=== PATIENT | female | born 1960 | race Caucasian/White ===

== ENCOUNTER 2018-05-15 19:40 | Emergency (ER) | payer BC ==
--- NOTE | 2018-05-15 21:34 | EDM.PDOC ---
<Hector Mercer - Last Filed: 05/15/18 21:33> ED HPI GENERAL MEDICAL PROBLEM - General Chief Complaint: Upper Extremity Injury/Pain Stated Complaint: WRIST INJURY Time Seen by Provider: 05/15/18 21:09 - Related Data Allergies Allergy/AdvReac Type Severity Reaction Status Date / Time No Known Allergies Allergy Verified 05/15/18 20:48 Home Meds: Home Meds . [No Known Home Meds] 05/15/18 [History] Course - Vital Signs Last Recorded V/S: Last Vital Signs Temp 98.9 F 05/15/18 20:49 Pulse 57 L 05/15/18 20:49 Resp 16 05/15/18 20:49 BP 210/111 H 05/15/18 20:49 Pulse Ox 99 05/15/18 20:49 - Re-Assessments/Exams Free Text/Narrative Re-Assessment/Exam: 05/15/18 21:33 The patient appears to have a ganglion cyst. I am recommending referral to Dr. Newman for definitive treatment. Departure - Departure Disposition: Home, Self-Care 01 Clinical Impression: Ganglion cyst of dorsum of right wrist, Hematoma - Discharge Information Instructions: Ganglion Cyst Referrals: PCP,None [Primary Care Provider] - Forms: ED Department Discharge, ED Return to Work/School Form Additional Instructions: you have been diagnosed with a ganglion cyst and hematoma. You're to follow-up with Dr. Brad Newman [phone]. Since she did not have a primary care doctor for you to Dr. Kamini [phone]. Return to the emergency room for any new or acutely worsening symptoms. <Farida Abbasi - Last Filed: 05/15/18 21:43> ED HPI GENERAL MEDICAL PROBLEM - General Source of Information: Reports: Patient History Limitations: Reports: No Limitations - History of Present Illness INITIAL COMMENTS - FREE TEXT/NARRATIVE: 57-year-old female presents to emergency with chief complaints of right dorsal hand bump that has resulted in a hematoma. She states that she's had a couple bumps on her hand that she's had for a few weeks and today she noticed that it developed a hematoma. She denies any numbness or tickling to her hand she reports she is right-handed. She has not taken anything for pain. She does not have a PCP. Onset: Today Onset Date: 05/15/18 Onset Time: 15:00 Duration: Getting Worse Location: Reports: Upper Extremity, Right Front/Back Body Image: 1 - Ganglion cyst with small hematoma noted, neurovascular intact. Quality: Reports: Other (Denies any pain) Improves with: Reports: None Worsens with: Reports: None Associated Symptoms: Reports: No Other Symptoms Review of Systems - Review of Systems Review Of Systems: ROS reveals no pertinent complaints other than HPI. Skin: Reports: Lumps (Right dorsal hand), Other (Right dorsal hematoma neurovascularly intact) ED EXAM, GENERAL - Physical Exam Exam: See Below Exam Limited By: No Limitations General Appearance: Alert, WD/WN, No Apparent Distress Skin Exam: Warm, Dry, Intact, Normal Color, No Rash, Other (Right dorsal ganglion cyst with small hematoma noted, neurovascularly intact) Course - Re-Assessments/Exams Free Text/Narrative Re-Assessment/Exam: 05/15/18 21:39 Discussed plan of care with patient discharged home with instructions to follow up with Xavier Newman, . Since the patient does not have a PCP I will refer her to Dr. Kamini Doherty. I did instruct the patient to return to the emergency room for any new or acutely worsening symptoms. Departure - Departure Time of Disposition: 21:41 Condition: Good - Discharge Information *PRESCRIPTION DRUG MONITORING PROGRAM REVIEWED*: Not Applicable
== END 2018-05-15 22:10 | disposition home or self-care (01) ==
LOC: JD.ED 19:40
DX: M67.431 Ganglion, right wrist (principal); S60.221A Contusion of right hand, initial encounter; X58.XXXA Exposure to other specified factors, initial encounter
CPT/HCPCS: 99282; 99283

== ENCOUNTER 2020-05-21 11:18 | Emergency (ER) | payer BC ==
--- NOTE | 2020-05-21 11:30 | EDM.PDOC ---
ED HPI GENERAL MEDICAL PROBLEM - General Chief Complaint: Cardiovascular Problem Stated Complaint: HIGH BLOOD PRESSURE SENT BY [facility] Time Seen by Provider: 05/21/20 11:30 Source of Information: Reports: Patient, Provider History Limitations: Reports: No Limitations - History of Present Illness INITIAL COMMENTS - FREE TEXT/NARRATIVE: 59-year-old female with known hypertension presents to the ED at the request of her provider at [facility]. She apparently is not being seen for about 1 year and is unclear how compliant she has been with antihypertensive medication. At any rate blood pressure in the clinic this morning was elevated at 201 over 118. Have a mild headache mostly frontal temporal headache that she woke with this morning. She has been having more headaches than usual suggesting blood pressures been elevated for period of time. She did see primary care practitioner at the walk-in clinic at [facility] about a week ago and was started on antihypertensive medication at that time. It is unclear exactly what this was at this time. Old she had hypertension about a year ago but has not been on any medication up until a week ago. We will phone the pharmacy that she got her medicine from to identify what she was started on. Denies any blurred vision, vertigo. No labs or ECG or chest x-ray were performed in the clinic today. Last week she was also started on a anti-inflammatory medication for her left knee pain which of course could be aggravating her blood pressure as well. Onset: Unknown/Unsure (History suggest uncontrolled hypertension for greater than at least 1 year. Patient has 2 sisters and a brother with hypertension. Not sure about mom.) Duration: Chronic, Getting Worse Location: Reports: Generalized (Possibly associated with mild headache the last several weeks.) Quality: Reports: Ache Severity: Mild (Dull ache in the temporal parietal aspect of her scalp bilaterally.) Improves with: Reports: None Worsens with: Reports: None Context: Denies: Activity, Exercise, Lifting, Sick Contact, Trauma, Other Associated Symptoms: Reports: Headaches. Denies: No Other Symptoms, Confusion, Chest Pain, Cough, cough w sputum, Diaphoresis, Fever/Chills, Loss of Appetite, Malaise, Nausea/Vomiting, Rash, Seizure, Shortness of Breath, Syncope, Weakness Treatments [employer]: Reports: Other (see below) - Related Data Allergies Allergy/AdvReac Type Severity Reaction Status Date / Time No Known Allergies Allergy Verified 05/21/20 11:36 Home Meds: Home Meds Valsartan 160 mg PO DAILY #30 tablet 05/21/20 [Rx] amLODIPine Besylate [Amlodipine Besylate] 10 mg PO DAILY #30 tablet 05/21/20 [Rx] Past Medical History - Past Health History Medical/Surgical History: Denies Medical/Surgical History Social & Family History - Caffeine Use Caffeine Use: Reports: Coffee - Living Situation & Occupation Living situation: Reports: Occupation: Employed ED ROS GENERAL - Review of Systems Review Of Systems: See Below Constitutional: Reports: Fatigue. Denies: Fever, Chills, Malaise, Weakness, Decreased Appetite, Weight Loss HEENT: Reports: Glasses Respiratory: Denies: Shortness of Breath, Wheezing, Pleuritic Chest Pain, Cough, Sputum Cardiovascular: Reports: Blood Pressure Problem (Recently diagnosed to have significantly elevated). Denies: Chest Pain, Claudication, Dyspnea on Exertion, Edema, Lightheadedness, Orthopnea ( blood pressure), Palpitations Endocrine: Reports: Fatigue GI/Abdominal: Reports: No Symptoms, Other (Known inguinal hernia for many years but is opted not to have this surgically repaired since it does not bother her much.) : Reports: Frequency, Incontinence (Very rare stress incontinence) Musculoskeletal: Reports: Joint Pain (Particularly left knee recently from osteoarthritic change. Occasionally low back pain neck pain and shoulder pain) Skin: Reports: No Symptoms Neurological: Reports: No Symptoms Psychiatric: Reports: No Symptoms Hematologic/Lymphatic: Reports: No Symptoms Immunologic: Reports: No Symptoms ED EXAM, GENERAL - Physical Exam Exam: See Below Exam Limited By: No Limitations General Appearance: Alert, WD/WN, No Apparent Distress, Other (Temperature is 36.3 degrees. Heart rate 81 and sinus respiratory to 16 with O2 sats of 96% room air initial blood pressure was 233/108.) Eye Exam: Bilateral Eye: A-V [place] (Held AV nicking bilaterally.), Normal Inspection, PERRL Ears: Normal TMs Throat/Mouth: Normal Inspection, Normal Lips, Normal Teeth, Normal Oropharynx Head: Atraumatic, Normocephalic Neck: Normal Inspection, Supple, Non-Tender, Full Range of Motion. No: Carotid Bruit, Lymphadenopathy (L), Lymphadenopathy (R) Respiratory/Chest: No Respiratory Distress, Lungs Clear, Normal Breath Sounds, No Accessory Muscle Use Cardiovascular: Normal Peripheral Pulses, Regular Rate, Rhythm, No Edema, No Gallop, No Murmur, No Rub Peripheral Pulses: 2+: Posterior Tibial (L), Posterior Tibial (R), Dorsalis Pedis (L), Dorsalis Pedis (R), 3+: Carotid (L), Carotid (R) GI/Abdominal: Normal Bowel Sounds, Soft, Non-Tender, No Organomegaly, No Abnormal Bruit, No Mass, Pelvis Stable, Other (No surgical scars. No abdominal bruit) Back Exam: Normal Inspection, Full Range of Motion, Other (No bruit over the renal arteries.). No: CVA Tenderness (L), CVA Tenderness (R) Extremities: Normal Range of Motion, No Pedal Edema, Other (Does have some swelling of her left knee at this time combined with arthritic change. The joint is not warm to palpation. There is also mild osteoarthritic change in the right knee.) Neurological: Alert, Oriented, CN II-XII Intact, Normal Cognition Psychiatric: Normal Affect, Normal Mood Skin Exam: Warm, Dry, Intact, Normal Color, No Rash #1 Interpretation EKG Date: 05/21/20 Time: 11:47 Rhythm: NSR Rate (Beats/Min): 70 [place]: Normal P-Wave: Present (Present but inverted in lead V1 unclear significance) QRS: Other (Left atrial hypertrophy pattern left ventricular hypertrophy pattern) ST-T: Other (Diffuse early repolarization pattern) QT: Normal EKG Interpretation Comments: Abnormal ECG Course - Vital Signs Last Recorded V/S: Last Vital Signs Temp 36.3 C 05/21/20 11:33 Pulse 81 05/21/20 11:33 Resp 16 05/21/20 11:33 BP 164/91 H 05/21/20 12:51 Pulse Ox 96 05/21/20 11:33 - Orders/Labs/Meds Orders: Active Orders 24 hr Category Date Time Status EKG Documentation Completion [RC] STAT Care 05/21/20 11:39 Active Peripheral IV Care [RC] . DIRECTED Care 05/21/20 11:41 Active URINALYSIS W/MICROSCOPIC [UA W/MICROSCOPIC] [URIN] Stat Lab 05/21/20 12:53 Results Sodium Chloride 0.9% [Saline Flush] Med 05/21/20 11:41 Active 10 ml FLUSH ASDIRECTED PRN Peripheral IV Insertion Adult [OM.PC] Stat Oth 05/21/20 11:41 Ordered Medication Orders Sodium Chloride (Sodium Chloride 0.9% 10 Ml Syringe) 10 ml FLUSH ASDIRECTED PRN PRN Reason: Keep Vein Open Last Admin: 05/21/20 12:24 Dose: 10 ml Documented by: PADMINI Labs: Laboratory Tests 05/21/20 05/21/20 05/21/20 Range/Units 11:58 11:58 11:58 WBC 3.91 L (3.98-10.04) K/mm3 RBC 4.97 (3.98-5.22) M/mm3 Hgb 13.7 (11.2-15.7) gm/dl Hct 40.2 (34.1-44.9) % MCV 80.9 (79.4-94.8) fl MCH 27.6 (25.6-32.2) pg MCHC 34.1 (32.2-35.5) g/dl RDW Std Deviation 38.9 (36.4-46.3) fL Plt Count 217 (182-369) K/mm3 MPV 10.2 (9.4-12.3) fl Neut % (Auto) 64.7 (34.0-71.1) % Lymph % (Auto) 27.1 (19.3-51.7) % [place] % (Auto) 7.9 (4.7-12.5) % Eos % (Auto) 0 L (0.7-5.8) Baso % (Auto) 0.3 (0.1-1.2) % Neut # (Auto) 2.53 (1.56-6.13) K/mm3 Lymph # (Auto) 1.06 L (1.18-3.74) K/mm3 [place] # (Auto) 0.31 (0.24-0.36) K/mm3 Eos # (Auto) 0.00 L (0.04-0.36) K/mm3 Baso # (Auto) 0.01 (0.01-0.08) K/mm3 ESR (0-20) mm/hr Sodium 143 (136-145) mEq/L Potassium 3.7 (3.5-5.1) mEq/L Chloride 104 (98-107) mEq/L Carbon Dioxide 25 (21-32) mEq/L Anion Gap 17.7 H (5-15) BUN 19 H (7-18) mg/dL Creatinine 0.6 (0.55-1.02) mg/dL Est Cr Clr Drug Dosing TNP Estimated GFR (MDRD) > 60 (>60) mL/min BUN/Creatinine Ratio 31.7 H (14-18) Glucose 93 (74-106) mg/dL Calcium 9.6 (8.5-10.1) mg/dL Magnesium 2.0 (1.8-2.4) mg/dl Total Bilirubin 0.5 (0.2-1.0) mg/dL AST 23 (15-37) U/L ALT 41 (14-59) U/L Alkaline Phosphatase 96 (46-116) U/L Troponin I < 0.017 (0.00-0.056) ng/mL C-Reactive Protein <0.2 (<1.0) mg/dL NT-Pro-B Natriuret Pep 141 H (0-125) pg/mL Total Protein 8.3 H (6.4-8.2) g/dl Albumin 4.3 (3.4-5.0) g/dl Globulin 4.0 gm/dL Albumin/Globulin Ratio 1.1 (1-2) Urine Color (Yellow) Urine Appearance (Clear) Urine pH (5.0-8.0) Ur Specific [place] (1.005-1.030) Urine Protein (Negative) Urine Glucose (UA) (Negative) Urine Ketones (Negative) Urine Occult Blood (Negative) Urine Nitrite (Negative) Urine Bilirubin (Negative) Urine Urobilinogen (0.2-1.0) Ur Leukocyte Esterase (Negative) 05/21/20 05/21/20 Range/Units 11:58 12:53 WBC (3.98-10.04) K/mm3 RBC (3.98-5.22) M/mm3 Hgb (11.2-15.7) gm/dl Hct (34.1-44.9) % MCV (79.4-94.8) fl MCH (25.6-32.2) pg MCHC (32.2-35.5) g/dl RDW Std Deviation (36.4-46.3) fL Plt Count (182-369) K/mm3 MPV (9.4-12.3) fl Neut % (Auto) (34.0-71.1) % Lymph % (Auto) (19.3-51.7) % [place] % (Auto) (4.7-12.5) % Eos % (Auto) (0.7-5.8) Baso % (Auto) (0.1-1.2) % Neut # (Auto) (1.56-6.13) K/mm3 Lymph # (Auto) (1.18-3.74) K/mm3 [place] # (Auto) (0.24-0.36) K/mm3 Eos # (Auto) (0.04-0.36) K/mm3 Baso # (Auto) (0.01-0.08) K/mm3 ESR 12 (0-20) mm/hr Sodium (136-145) mEq/L Potassium (3.5-5.1) mEq/L Chloride (98-107) mEq/L Carbon Dioxide (21-32) mEq/L Anion Gap (5-15) BUN (7-18) mg/dL Creatinine (0.55-1.02) mg/dL Est Cr Clr Drug Dosing Estimated GFR (MDRD) (>60) mL/min BUN/Creatinine Ratio (14-18) Glucose (74-106) mg/dL Calcium (8.5-10.1) mg/dL Magnesium (1.8-2.4) mg/dl Total Bilirubin (0.2-1.0) mg/dL AST (15-37) U/L ALT (14-59) U/L Alkaline Phosphatase (46-116) U/L Troponin I (0.00-0.056) ng/mL C-Reactive Protein (<1.0) mg/dL NT-Pro-B Natriuret Pep (0-125) pg/mL Total Protein (6.4-8.2) g/dl Albumin (3.4-5.0) g/dl Globulin gm/dL Albumin/Globulin Ratio (1-2) Urine Color Yellow (Yellow) Urine Appearance Clear (Clear) Urine pH 7.0 (5.0-8.0) Ur Specific [place] 1.020 (1.005-1.030) Urine Protein Negative (Negative) Urine Glucose (UA) Negative (Negative) Urine Ketones Negative (Negative) Urine Occult Blood Trace-intact H (Negative) Urine Nitrite Negative (Negative) Urine Bilirubin Negative (Negative) Urine Urobilinogen 0.2 (0.2-1.0) Ur Leukocyte Esterase Negative (Negative) Meds: Medications Generic Name Dose Route Start Last Admin Trade Name Joseph PRN Reason Stop Dose Admin Sodium Chloride 10 ml 05/21/20 11:41 05/21/20 12:24 Sodium Chloride 0.9% 10 Ml Syringe FLUSH 10 ml ASDIRECTED PRN Administration Keep Vein Open Discontinued Medications Generic Name Dose Route Start Last Admin Trade Name Joseph PRN Reason Stop Dose Admin Amlodipine Besylate 10 mg 05/21/20 21:00 Amlodipine 10 Mg Tab PO BEDTIME NORM Amlodipine Besylate 10 mg 05/21/20 12:18 05/21/20 12:23 Amlodipine 10 Mg Tab PO 05/21/20 12:19 10 mg STAT STA Administration Enalaprilat 1.25 mg 05/21/20 12:43 05/21/20 12:51 Enalaprilat 1.25 Mg/Ml Sdv IVPUSH 05/21/20 12:44 1.25 mg ONETIME ONE Administration Labetalol HCl 20 mg 05/21/20 11:41 05/21/20 12:23 Labetalol 100 Mg/20 Ml Mdv IVPUSH 05/21/20 11:42 20 mg ONETIME ONE Administration Protocol - Radiology Interpretation Free Text/Narrative:: 59-year-old female presents to the ED for evaluation of markedly elevated blood pressure. She was told she had hypertension a year ago and apparently was started on medication but was lost to follow-up. She was started on medication at the walk-in clinic last week not clear what this was. She was advised to see her primary care physician who she did this morning and blood pressure was elevated at the clinic at 201/122. She was therefore advised to come to the ED for further evaluation and management of her hypertension. She did have a mild associated headache but she is neurologically intact. She is have not been having more headaches off and on for the last month. Initial blood pressure here was 233/108. Did subsequently come down to 204/102. Decision made to treated with antihypertensive medication she will be given labetalol 20 mg IV and amlodipine 10 mg p.o. at this time. She will have a chest x-ray done ECG routine labs and a urinalysis performed. She does have mild AV nicking on ophthalmoscopy. ECG done does reveal left ventricular hypertrophy left atrial hypertrophy compared with uncontrolled blood pressure for lengthy period of time - Re-Assessments/Exams Free Text/Narrative Re-Assessment/Exam: 05/21/20 12:09 blood pressure is currently 186/91 with a heart rate of 65. O2 sats 97% room air. This is approximately 10 minutes after receiving labetalol 20 mg IV. Chest x-ray done portably reveals heart size and mediastinum to be within normal limits for per portable technique. Lungs are clear with no acute parenchymal changes. Bony structures are showed nothing acute. 05/21/20 12:43 Labs reveal a white count of 3.91 with a differential of 65% neutrophils. Hemoglobin is 13.7 with hematocrit of 40.2. Platelet count 217,000. Sodium 143 with a potassium of 3.7 chloride 104 with a bicarb of 25. Anion gap is mildly elevated at 17.7. BUN is 19 with a creatinine of 0.6 GFR greater than 60. Glucose is 93 with a calcium of 9.6. Magnesium 2.0. Liver function normal. Troponin I is less than 0.017. C-reactive protein less than 0.2. BNP 141 total protein 8.3 with an albumin fraction of 4.3. Urinalysis is pending. Pressure is currently down to 164/96. I am going to give her Vasotec 1.25 mg IV. To help further reduce her blood pressure to around 150 and below 90 on the diastolic side. 05/21/20 12:49 I discussed the findings with the patient and indicated that her ECG does reveal that she has had uncontrolled hypertension for at least greater than 5 years. She needs to gain control of her blood pressure. The plan will be to discharge her home on valsartan 160 mg in the morning and amlodipine 10 mg at at bedtime for blood pressure control. She is to follow-up with your personal care provider in 2 weeks time for blood pressure review. 05/21/20 13:06 blood pressure is currently 148/78. Patient will be discharged home at this time. She will take amlodipine 10 mg at bedtime and valsartan 160 mg every morning. Departure - Departure Time of Disposition: 13:27 Disposition: Home, Self-Care 01 Condition: Fair Clinical Impression: Uncontrolled hypertension, stage 1 Prescriptions: amLODIPine Besylate [Amlodipine Besylate] 10 mg PO DAILY #30 tablet Valsartan 160 mg PO DAILY #30 tablet Referrals: Nabila Llamas POLYSOMNOGRAPHY TECHNICIAN [Primary Care Provider] - Forms: ED Department Discharge Additional Instructions: Evaluation in the emergency room today in regards to uncontrolled high blood pressure. This was first identified last week at the walk-in clinic. Provider today identified blood pressure to be poorly controlled with the top number which we call the systolic blood pressure greater than 201 and the bottom number which we called diastolic number greater than 108. Blood pressure upon arrival in the ED was 233/108. Heart tracing reveals evidence that you have had high blood pressure poorly controlled for probably greater than 5 years as the heart is showing signs of enlargement of the ventricles and the atrium due to a high blood pressure. The kidneys are functioning normally. You were treated in the emergency room with a medication labetalol 20 mg IV and Vasotec 1.25 mg to bring your blood pressure under good control. You also received oral amlodipine 10 mg by mouth in the ED. At home you will need to take amlodipine 10 mg by mouth once daily every night at bedtime starting tonight and valsartan 160 mg every morning for blood pressure control. Suggest purchasing a blood pressure machine and checking her blood pressure at home usually first thing in the morning and either after work before supper or briefly before bed and write down these numbers in the date and time so that we we can further evaluate need for blood pressure medication. Suggest follow-up with your primary care provider for blood pressure review in 2 weeks time. Blood pressure at the time of discharge from the hospital was 148/78 today. Sepsis Event Note (ED) - Focused Exam Vital Signs: Vital Signs Temp Pulse Resp BP BP Pulse Ox 05/21/20 12:51 164/91 H 05/21/20 12:23 182/92 H 05/21/20 11:33 36.3 C 81 16 233/108 H 96 - My Orders Last 24 Hours: My Active Orders 05/21/20 11:39 EKG Documentation Completion [RC] STAT 05/21/20 11:41 Peripheral IV Care [RC] . DIRECTED Sodium Chloride 0.9% [Saline Flush] 10 ml FLUSH ASDIRECTED PRN Peripheral IV Insertion Adult [OM.PC] Stat 05/21/20 12:53 URINALYSIS W/MICROSCOPIC [UA W/MICROSCOPIC] [URIN] Stat - Assessment/Plan Last 24 Hours: My Active Orders 05/21/20 11:39 EKG Documentation Completion [RC] STAT 05/21/20 11:41 Peripheral IV Care [RC] . DIRECTED Sodium Chloride 0.9% [Saline Flush] 10 ml FLUSH ASDIRECTED PRN Peripheral IV Insertion Adult [OM.PC] Stat 05/21/20 12:53 URINALYSIS W/MICROSCOPIC [UA W/MICROSCOPIC] [URIN] Stat
[2020-05-21] MEDS ORDERED: Sodium Chloride 0.9% 10 ML Syringe FLUSH PRN (11:41)
[2020-05-21] MEDS ORDERED: Labetalol 100 MG/20 ML MDV IVPUSH ONE (11:41)
[2020-05-21] MEDS ORDERED: amLODIPine 10 MG Tab PO STA (12:18)
--- NOTE | 2020-05-21 12:23 | CR ---
Chest: Portable view of the chest was obtained. Comparison: No prior chest imaging is available. Heart size and mediastinum are within normal limits for portable technique. Lungs are clear with no acute parenchymal change. Bony structures showed nothing acute. Impression: 1. Nothing acute is seen on portable chest x-ray. Diagnostic code #1
[2020-05-21] MEDS ORDERED: Enalaprilat 1.25 MG/ML SDV IVPUSH ONE (12:43)
[2020-05-21] MEDS ORDERED: amLODIPine 10 MG Tab PO SCH (21:00)
== END 2020-05-21 13:45 | disposition home or self-care (01) ==
LOC: JD.ED 11:18
DX: I10 Essential (primary) hypertension (principal); M19.90 Unspecified osteoarthritis, unspecified site; R94.31 Abnormal electrocardiogram [ECG] [EKG]; Z79.899 Other long term (current) drug therapy
CPT/HCPCS: 36415; 71045; 80053; 81001; 83735; 83880; 84484; 85025; 85652; 86140; 93005; 96374; 96375; 99284; A9270; J3490; 93010

== ENCOUNTER 2024-03-28 13:31 | Day surgery (SDC) | payer BC, MEDICAID ==
[~2024-03-28 13:31] MED LIST: Tropicamide 1% Ophth Soln 15 ML Bottle EYERT SCH
[2024-03-28] MEDS: Polymyxin B/Trimethoprim 10 ML Bottle EYERT SCH (13:52)
[2024-03-28] MEDS: Brimonidine 0.2% Ophth Soln 5 ML Bottle EYERT SCH (13:56)
[2024-03-28] MEDS: Phenylephrine 2.5% Ophth Soln 2 ML Bot EYERT SCH (14:02)
[2024-03-28] MEDS: Tropicamide 1% Ophth Soln 3 ML Bottle EYERT SCH (14:07)
[2024-03-28] MEDS: Cefuroxime 10 MG/ML SYRINGE EYERT SCH (14:51)
[2024-03-28] MEDS: Tetracaine HCl/PF 0.5% 4 ML Bottle EYEBOTH SCH (14:51)
[2024-03-28] MEDS: Lidocaine 1% PF 2 ML SDV INJECT SCH (14:51)
[2024-03-28] MEDS: Pilocarpine 4% Ophth Soln 15 ML Bot EYERT SCH (14:51)
== END 2024-03-28 15:49 | disposition home or self-care (01) ==
LOC: JD.SDS 13:31
PROVIDERS: ATTEND Ophthalmology
DX: H25.89 Other age-related cataract (principal); H25.812 Combined forms of age-related cataract, left eye; I10 Essential (primary) hypertension; Z87.891 Personal history of nicotine dependence; Z79.899 Other long term (current) drug therapy
CPT/HCPCS: 66984; A9270; J0697; J3490

== ENCOUNTER → 2024-04-25 | Day surgery (SDC) | payer MEDICAID ==
[2024-04-25] MEDS: Phenylephrine 2.5% Ophth Soln 2 ML Bot EYELF SCH (10:35)
[2024-04-25] MEDS: Tetracaine HCl/PF 0.5% 4 ML Bottle EYEBOTH SCH (10:36)
[2024-04-25] MEDS: Pilocarpine 4% Ophth Soln 15 ML Bot EYELF SCH (10:36)
[2024-04-25] MEDS: Lidocaine 1% PF 2 ML SDV INJECT SCH (10:36)
[2024-04-25] MEDS: Brimonidine 0.2% Ophth Soln 5 ML Bottle EYELF SCH (10:36)
[2024-04-25] MEDS: Cefuroxime 10 MG/ML SYRINGE EYELF SCH (10:36)
[2024-04-25] MEDS: Polymyxin B/Trimethoprim 10 ML Bottle EYELF SCH (10:36)
[2024-04-25] MEDS: Tropicamide 1% Ophth Soln 3 ML Bottle EYELF SCH (14:15)
== END ==
LOC: JD.SDS 12:55
PROVIDERS: ATTEND Ophthalmology
DX: H25.812 Combined forms of age-related cataract, left eye (principal); I10 Essential (primary) hypertension; Z87.891 Personal history of nicotine dependence; H52.31 Anisometropia; Z96.1 Presence of intraocular lens
CPT/HCPCS: A9270-GY; J0697; J3490; V2632